=== PATIENT | male | born 1960 | race Caucasian/White ===

== ENCOUNTER 2022-02-03 08:27 | Outpatient (CLI) | payer OTHER, SELFPAY ==
[2022-02-03 13:49] LABS: Albumin* 4.2 g/dL (3.3-5.0); Chloride* 104 mmol/L (96-114); Sodium* 138 mmol/L (135-149)
[2022-02-03 13:50] LABS: Potassium* 4.6 mmol/L (3.6-5.1)
[2022-02-03 13:51] LABS: Cholesterol* 195 mg/dL (90-199)
[2022-02-03 13:52] LABS: Alanine Aminotransferase* 23 U/L (4-50); Alkaline Phosphatase* 64 U/L (40-150); Aspartate Amino Transferase* 29 U/L (12-35); Bilirubin Total* 0.7 mg/dL (0.1-1.5); Blood Urea Nitrogen* 17 mg/dL (7-30); Carbon Dioxide* 29 mmol/L (20-32); Estimated Glomerular Filt Rate 86 ml/min; Glucose* 92 mg/dL (60-115); Total Protein* 7.1 g/dL (6.0-8.3); Triglycerides* 70 mg/dL (40-149)
[2022-02-03 13:53] LABS: Calcium* 9.3 mg/dL (8.4-10.6); HDL Cholesterol* 56 mg/dL (>=40); LDL Cholesterol Calculated 125 mg/dL (<100)
[2022-02-03 14:23] LABS: PSA Screen* 0.59 ng/mL (0.10-4.00)
== END 2022-02-03 08:28 | disposition home or self-care (01) ==
PROVIDERS: PCP Internal Medicine; Visit Provider Internal Medicine
DX: Z12.5 Encounter for screening for malignant neoplasm of prostate (principal); Z13.6 Encounter for screening for cardiovascular disorders
CPT/HCPCS: 80053; 80061; 84153

== ENCOUNTER 2022-03-13 15:19 | Outpatient (CLI) | payer OTHER, SELFPAY ==
--- NOTE | 2022-03-13 15:30 | MR_ITS ---
[address] [address] Phone:?[phone] Fax:?[phone] Referring Physician Information: Luis Georges M.D. [id number] [address] Phone:?[phone] Fax:?[phone] Patient:?Marv Menon D.O.B:?1960 Sex:?Male Phone:?[phone] [facility] MRN:?[id number] Exam Date:?03/13/2022 ? EXAM: MRI OF THE LEFT SHOULDER CLINICAL INFORMATION: The patient is a 61-year-old with left shoulder pain. Evaluate for rotator cuff injury. PRIOR SURGERY: None reported. COMPARISON STUDIES: There are no prior studies available for comparison. TECHNICAL INFORMATION: Using a 1.5T MR scanner and a localizing shoulder surface coil: 3.0 mm?coronal obliques: PD, T2, STIR 3.0 mm?sagittal obliques: PD, T2 3.0 mm?axials: PD, T2 FINDINGS: Articular/Extraarticular collections: Effusion: Mild to moderate. Subacromial/subdeltoid: Mild fluid is seen within the subacromial/subdeltoid bursa, in keeping with mild bursitis. Subcoracoid: No evidence for bursitis. Osseous structures: Proximal humerus: Cortical irregularity and subcortical cystic changes can be seen involving the greater and lesser tuberosity regions, in keeping with the rotator cuff pathology discussed below. There is no evidence for greater or lesser tuberosity fracture. No Hill-Sachs or reverse Hill-Sachs lesion is identified. Glenoid: Cortical irregularity and subcortical cystic changes can be seen along the posterior articular surfaces of the glenoid with mild subcortical edema. The findings are noted on coronal series 4 image 19 and are in keeping with mild osteoarthritic change. No evidence for acute bony injury to the glenoid can be seen. There is no evidence for fracture. Acromioclavicular joint: Mild to moderate changes of acromioclavicular joint arthrosis are present. Coracoacromial arch: Acromion morphology: Type II. No evidence for os acromiale. Acromiohumeral space: Mildly narrowed. Coracohumeral space: Within normal limits. Rotator cuff and deltoid: Supraspinatus: Moderate changes of supraspinatus tendinosis can be seen with full-thickness tearing of the anterior and distal tendon fibers seen on coronal series 4 image 12 and on sagittal series 8 image 8. The area of full-thickness tearing measures 15 mm in mediolateral dimension and 15 mm in anteroposterior dimension. Additional partial-thickness intrasubstance and deep surface tearing of the remaining tendon fibers can be seen on coronal series 4 image 14, measuring approximately 28 mm in greatest dimension. No atrophic changes of the supraspinatus muscle belly are present. Infraspinatus: Moderate infraspinatus tendinosis can be seen. There is no evidence for full or partial-thickness tearing. No atrophic changes of the infraspinatus muscle belly are identified. Teres minor: No evidence for tendinosis, tearing, or associated muscle belly atrophy. Subscapularis: Moderate subscapularis tendinosis can be seen. There is no evidence for full or partial-thickness tearing. No atrophic changes of the subscapularis muscle belly are noted. Deltoid: No evidence for strain or tearing. Biceps tendon: The intra-articular and biceps sulcus portions of the biceps tendon are normal. There is no evidence for rupture, dislocation, or subluxation. Glenohumeral joint and labrum: Articular Cartilage: Chondromalacia and chondral thinning can be seen along the central and posterior articular surfaces of the glenohumeral articulation with underlying bony changes within the glenoid. The findings are in keeping with mild osteoarthritic change. Labrum: Degeneration, blunting, and irregularity of the glenoid labrum can be seen without definite areas of more well-defined tearing. No paralabral ganglion cyst formation is present. Capsular Soft Tissues: No definite capsular abnormalities of the glenohumeral joint are seen. No evidence for capsular tearing is present and there are no MR signs of adhesive capsulitis. CONCLUSION: 1. Moderate supraspinatus tendinosis with left partial-thickness tearing as described above. Additional moderate infraspinatus and subscapularis tendinosis can be seen. 2. Mild to moderate acromioclavicular joint arthrosis with mild narrowing of the acromiohumeral space. 3. The long head of the biceps tendon appears intact. 4. Mild osteoarthritic changes of the glenohumeral articulation with degeneration, blunting, and irregularity of the glenoid labrum. 5. Mild to moderate glenohumeral joint effusion and mild subacromial/subdeltoid bursitis. [facility] Electronically signed on 03/14/2022 7:36:00 AM by Werner Yanez M.D.
== END 2022-03-13 15:20 | disposition home or self-care (01) ==
LOC: MRI 15:20
PROVIDERS: PCP Internal Medicine; Visit Provider Orthopaedic Surgery Sports Medicine
DX: M25.512 Pain in left shoulder (principal); M75.102 Unspecified rotator cuff tear or rupture of left shoulder, not specified as traumatic; M19.012 Primary osteoarthritis, left shoulder; M25.412 Effusion, left shoulder
CPT/HCPCS: 73221

== ENCOUNTER 2022-05-01 06:16 | Day surgery (SDC) | payer OTHER, SELFPAY ==
[2022-05-01] VITALS (13 sets, daily range): BP systolic 86–113; BP diastolic 58–78; PULSE 58–93; RESP 16–18; TEMP 36.1–36.7; O2SAT 93–95; BMI 23.1
[2022-05-01] MEDS: LACTATED RINGERS 1000 ML 1,000 ML 100 ML IV ×2 (06:00→08:56)
--- NOTE | 2022-05-01 06:23 | SUR.PREOP ---
covid test negative per pt and picture on phone
[2022-05-01] MEDS: MIDAZOLAM HCL 1 MG/ML inj IVP (07:25)
[2022-05-01] MEDS: fentaNYL 100 MCG/2 ML inj IVP (07:25)
[2022-05-01] MEDS: SODIUM CHLORIDE 0.9 % (FLUSH) 10 ML SYRINGE IVF (07:34)
--- NOTE | 2022-05-01 07:34 | SUR.PREOP ---
TIME?OUT:?07 PT/RN/MDA?VERIFICATION?OF?SURGICAL?SITE,?PROCEDURE,?AND?CONSENT OBTAINED?PRIOR?TO?INVASIVE?PROCEDURE.LEFT SHOULDER
[2022-05-01] MEDS: EPINEPHrine 1 MG in SODIUM CHLORIDE IRRIG SOLUTION 3,000 ML 9003 MG IRRIGATION ×4 (07:40)
[2022-05-01] MEDS: CEFAZOLIN 2 GM in 0.9 % SODIUM CHLORIDE Mini-bag 100 ML IVPB (07:50)
--- NOTE | 2022-05-01 09:09 | P.NB_ITS ---
Nerve Block Nerve Block Time Seen by Provider: 07:24 Date Seen: 05/01/22 Type of block requested by surgeon for post-operative analgesia: interscalene Side: left Time out performed: Yes Verification of patient name: Yes Verification of date of : Yes Site marking: site marked Name of person performing procedure: Chago Assistants, if any: Kervin Continuous monitoring Was continuous monitoring of O2 sat, B/P, pododermatologist, recorded every 15 minutes?: Yes Procedure Checklist: sterile prep, needles and gloves Ultrasound guided. Images saved: Yes Medications given in 5ml increments after negative aspiration: Ropivicaine %: 0.5 mL: 20 Needle gauge: 22 Decadron (mg): 10 Precedex (mcg): 25 Patient tolerated procedure well: Yes Block Charges Block Charge (with Pro Fee): Brachial Plexus Use of Ultrasound Machine for Block: Yes- US Guidance/pain block
--- NOTE | 2022-05-01 09:35 | PM.ORPRC ---
Procedure Note Date of procedure: 05/01/22 Procedure: PREOPERATIVE DIAGNOSES: 1. Left shoulder rotator cuff tear. 2. Left shoulder subacromial impingement syndrome. 3. Left shoulder AC degenerative joint disease POSTOPERATIVE DIAGNOSES: 1. Left shoulder rotator cuff tear - full-thickness supraspinatus and high-grade partial-thickness upper border subscapularis 2. Left shoulder long head biceps low-grade partial-thickness tearing 3. 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 Left shoulder mild degenerative fraying/tearing anterior labrum 5. Left shoulder subacromial impingement syndrome. NAME OF OPERATION: 1. Left shoulder arthroscopic rotator cuff repair (full-thickness supra; high-grade partial-thickness upper border subscap) 2. Left shoulder arthroscopic extensive glenohumeral debridement 3. Left shoulder arthroscopic bursectomy, subacromial decompression/partial acromioplasty. SURGEON: Luis Georges MD MANAGER LEADERSHIP DEVELOPMENT: Lloyd Brink PA-C. Of note, a skilled community assistant was critical for this case to aide in patient positioning, suture manipulation, arm positioning, instrument positioning, and closure. ANESTHESIA: General plus preoperative supraclavicular block. EBL: Less than 25 mL IMPLANTS: Arthrex 2.6 mm all suture FiberTak RC (x2); 4.75 mm BioComposite SwiveLock suture anchor (x2); 5.5 mm BioComposite SwiveLock suture anchor (x1) COMPLICATIONS: None evident INDICATIONS: The patient is a pleasant, 61-year-old male who has experienced left shoulder pain that has been increasing in recent time. Physical exam and imaging were consistent with a rotator cuff tear. Given their findings, as well as the weakness and pain, and inadequate response to nonoperative management, recommendation was made for surgery. FINDINGS: Exam under anesthesia revealed stable shoulder with excellent range of motion. The diagnostic arthroscopy revealed grade 4 chondromalacia defect over the anterior superior humeral head in line with the biceps groove that measured 8 mm in diameter. Grade 2 chondromalacia surrounding this region otherwise. The Subscapularis tendon was torn from its upper border with mild to moderate retraction. The long head of the biceps tendon was intact overall with some partial-thickness fraying/tearing in the bicipital groove upon retracting the tendon into the joint. The superior rotator cuff tendon was found to be torn full-thickness through the anterior 2/3 of the supraspinatus. The labrum was degeneratively frayed in the anterior aspect. No loose bodies were identified within the pouch or subscapularis recess. PROCEDURE: Following a thorough discussion of risks, benefits, and alternatives, consent was obtained and the left shoulder was marked. The patient was brought to the operating room and placed supine on the operating table. Induction of anesthesia was completed after preoperative supraclavicular block was administered in preop holding. Appropriate time out was performed identifying proper patient, site, and procedure. 2 g IV Ancef was administered within 1 hour of incision preoperatively. The left upper extremity was prepped and draped in the appropriate sterile fashion using ChloraPrep prep. This was after the patient was positioned in the beach chair with their head in neutral alignment and all bony prominences well padded. The shoulder was insufflated with 20mL of normal saline via an 18g spinal needle from a posterior approach. An 11 blade skin incision allowed a blunt trochar to be inserted and diagnostic arthroscopy to be performed with the findings as noted above. An anterior portal was established with an outside in technique. This allowed the probe to be inserted and confirm the diagnostic arthroscopic findings. The shaver was then inserted and allowed debridement of the anterior labrum. Additionally, the shaver was utilized for debridement of the partial-thickness low-grade biceps tearing upon retracting this into the joint and for the humeral head chondral tissue debridement surrounding the grade 4 chondromalacia lesion. Following this, the upper border subscapularis was repaired after debriding the lesser tuberosity with the shaver and Mccoy cautery. Subscapularis was captured in horizontal mattress fashion with a fiber tape suture. The tails were brought to a single anchor in the lesser tuberosity with excellent reapproximation of the subscap tendon and good excursion/tension. Thereafter, the subacromial space was entered. Here, a complete bursectomy and partial acromioplasty/subacromial decompression was performed with a combination of radiofrequency ablator, the shaver, and a 5.5 mm bur. No significant spurring was appreciated on the caudal surface of the AC joint. Thus, the AC joint was left intact. Further inspection of the supraspinatus and infraspinatus rotator cuff was performed. This identified the tear as noted above. The margins of the tear were debrided, and the greater tuberosity was debrided with a combination of the apollo cautery, shaver, and bur on reverse setting. After gentle decortication, a speed bridge configuration with a medial isidro was engaged. 2 medial anchors were placed and the sutures were passed with a fiber link. The eyelet suture tails were then retrieved and tied and cinched down for the medial isidro purpose. A tail from each of the medial row anchor FiberTapes were then brought to a lateral row anchor along with 1 of the tails from the medial isidro. Excellent reapproximation of the tissue to the greater tuberosity was achieved with broad footprint compression. Prior to anchor driver license technician removal, the eyelet sutures were tugged on for each anchor and found that the anchor had excellent stability within the bone. The shoulder was placed through range of motion and found to be stable. The rotator cuff was re-probed and found to be stable. Instruments were removed. Excess fluid was drained, closure performed with 4-0 Monocryl and Steri-Strips. Dressings were applied. Sling was applied. The patient was awoken from anesthesia and transferred to the PACU in stable condition. A skilled community assistant was critical for this case to aid in patient positioning, limb positioning, skill to manipulate arthroscopic instruments and camera, suture management, patient safety, and closure. PLAN: 1. Elbow, forearm, wrist and digit range of motion of operative extremity as tolerated. 2. Encouraged ice. 3. Percocet for pain as needed. 4. Sling at all times except for ROM and showering. 5. Follow up with PA visit in 1-2 weeks for wound check. Initiate physical therapy following that visit for passive range of motion. Initiate active assisted range of motion at 3-4 weeks depending on tear size. May do pendulums now.
--- NOTE | 2022-05-01 09:49 | W.ANESCHARGE ---
Anesthesia Charges Start Date/Time Anesthesia Start Date: 05/01/22 Anesthesia Start Time: 07:37 Stop Date/Time Anesthesia Stop Date: 05/01/22 Anesthesia Stop Time: 09:51 Summary Emergency: No
--- NOTE | 2022-05-01 10:53 | W.ANESCHARGE ---
Anesthesia Charges Start Date/Time Anesthesia Start Date: 05/01/22 Anesthesia Start Time: 07:37 Stop Date/Time Anesthesia Stop Date: 05/01/22 Anesthesia Stop Time: 09:51 Summary Emergency: No
== END 2022-05-01 11:49 | disposition home or self-care (01) ==
PROVIDERS: PCP Internal Medicine; Visit Provider Orthopaedic Surgery Sports Medicine
PROC: (CPT 29805; principal; 2022-05-01 07:30)
DX: M75.122 Complete rotator cuff tear or rupture of left shoulder, not specified as traumatic (principal); M75.42 Impingement syndrome of left shoulder; M19.012 Primary osteoarthritis, left shoulder; M94.212 Chondromalacia, left shoulder; S46.112A Strain of muscle, fascia and tendon of long head of biceps, left arm, initial encounter; S43.432A Superior glenoid labrum lesion of left shoulder, initial encounter
CPT/HCPCS: 29827; 29826; 29823; 01630; 64415; 76942; C1713; J0171; J0330; J0690; J1100; J2250; J2370; J2405; J2704; J2795; J3010; J7120; L3670

== ENCOUNTER 2022-10-11 10:44 | Outpatient (CLI) | payer OTHER, SELFPAY ==
--- NOTE | 2022-10-11 11:00 | CRLHL7_ITS ---
For Patients: As a result of the Century Cures Act, medical imaging exams and procedure reports are released immediately into your electronic medical record. You may view this report before your referring provider. If you have questions, please contact your health care provider. INDICATION: TESTICULAR PAIN COMPARISON: 04/26/2017 TECHNIQUE: Vazquez scale imaging was performed of the scrotum. In addition color Doppler and spectral Doppler analysis was performed of the testes. FINDINGS: The testes demonstrate normal arterial and venous blood flow on color Doppler and spectral Doppler analysis. The testes have no evidence of a suspicious mass or area of inflammation. Mild incidental microlithiasis is again noted. The right testis measures 5.3 x 2.2 x 2.9 cm in size and the left testis measures 5.1 x 1.9 x 3.4 cm. Normal right epididymis. Left epididymal head cyst is present measuring 2.0 x 1.5 x 1.6 cm. A curvilinear septation is noted. This may represent 2 smaller cysts immediately adjacent to each other. There is no evidence of a hydrocele or varicocele. IMPRESSION: Left epididymal head cyst or cysts measuring in total up to 2 cm, similar to the prior exam. Mild bilateral testicular microlithiasis without intratesticular mass or acute inflammation. No torsion. Dictated by Eddie Tello MD @ 10/12/2022 8:51:01 AM (Electronically Signed)
== END 2022-10-11 10:45 | disposition home or self-care (01) ==
LOC: US 10:45
PROVIDERS: PCP Internal Medicine; Visit Provider Urology
DX: N50.819 Testicular pain, unspecified (principal); N50.3 Cyst of epididymis
CPT/HCPCS: 76870; 93976

== ENCOUNTER 2023-02-08 14:13 | Outpatient (CLI) | payer OTHER, SELFPAY ==
--- NOTE | 2023-02-08 14:30 | MR_ITS ---
[facility] [address] [facility] [address] Phone:?[phone] Fax:?[phone] Referring Physician Information: Abraham Jansen M.D. [address] [facility] [address] Phone:?[phone] Fax:?[phone] Patient:Annette Menon D.O.B:?1960 Sex:?Male Phone:?[phone] [facility] MRN:?[id number] Exam Date:?02/08/2023 EXAM: MRI of the RIGHT SHOULDER, without contrast CLINICAL: Right shoulder and upper arm injury. Evaluate for rotator cuff tear. COMPARISONS: None available. TECHNICAL: Multiplanar multisequence MRI of the right shoulder was obtained. SEDATION: None. CONTRAST: None. FINDINGS: Rotator cuff: Supraspinatus/Infraspinatus: There is high-grade partial interstitial insertional tearing of the junction of the posterior distal supraspinatus and anterior distal infraspinatus tendons on coronal series 4 images 15-16 involving approximately 70% of the tendon thickness and superimposed upon mild tendinosis. No significant fatty atrophy of the muscle bellies. Teres minor: No tendinosis, tear or atrophy. Subscapularis: Postop changes of prior tendon repair surgery, with only minimal partial interstitial tearing of the distal tendon. No evidence of high-grade partial or full-thickness tendon tear. No significant fatty atrophy of the muscle belly. Bursae: Subacromial-subdeltoid: Mild bursal fluid. Subcoracoid: No significant bursal fluid. Coracoacromial arch: Acromion morphology: Type II. No os acromiale. Acromiohumeral space: Mildly narrowed. Coracohumeral space: Within normal limits. Biceps tendon, long head: Intraarticular and extraarticular segments intact without rupture, tendinopathy or displacement. Glenohumeral joint: Physiologic volume of joint fluid. Articular cartilage: No chondral defects identified. Capsule: No convincing evidence of capsular thickening or injury. Labrum: There is focal tearing of the posterior labrum on axial series 3.2 images 47. There is attenuation/tearing of the posterior superior labrum on coronal series 4 images 16-17. No additional discrete labral tear identified on this nonarthrogram exam. No perilabral cyst identified. Bones: Reactive marrow edema and small cystic change is seen to involve the greater tuberosity of the proximal humerus. Postoperative changes of prior distal subscapularis tendon repair surgery noted with associated surgical anchor in place within the proximal humerus. No evidence of fracture. Acromioclavicular joint: Mild changes of arthrosis. No AC joint injury/widening. IMPRESSION: 1. High-grade partial interstitial insertional tearing of the junction of the posterior distal supraspinatus and anterior distal infraspinatus tendons superimposed upon mild tendinosis. 2. Postoperative changes of prior subscapularis tendon repair surgery with only minimal partial interstitial tearing of the distal tendon. 3. Focal tearing of the posterior labrum with attenuation/tearing of the posterior superior labrum. 4. Mildly narrowed acromiohumeral space with mild subacromial-subdeltoid bursitis. 5. Mild AC joint arthrosis. [facility] Electronically signed on 02/08/2023 4:53:00 PM by Jeet Paige D.O.
== END 2023-02-08 14:14 | disposition home or self-care (01) ==
PROVIDERS: PCP Internal Medicine; Visit Provider Internal Medicine
DX: M25.511 Pain in right shoulder (principal); M75.101 Unspecified rotator cuff tear or rupture of right shoulder, not specified as traumatic; M75.51 Bursitis of right shoulder; M19.011 Primary osteoarthritis, right shoulder
CPT/HCPCS: 73221

== ENCOUNTER 2023-04-02 07:28 | Day surgery (SDC) | payer OTHER, SELFPAY ==
[2023-04-02] VITALS (13 sets, daily range): BP systolic 92–130; BP diastolic 40–90; PULSE 59–78; RESP 11–16; TEMP 36.3–36.6; O2SAT 91–97; BMI 23.3
--- NOTE | 2023-04-02 07:38 | W.PM.H&PU ---
History & Physical Update History & Physical Update H&P Reviewed and patient assessed: No changes noted
[2023-04-02] MEDS: SODIUM CHLORIDE 0.9 % (FLUSH) 10 ML SYRINGE IVF (08:07)
[2023-04-02] MEDS: LACTATED RINGERS 1000 ML 1,000 ML 100 ML IV (08:08)
[2023-04-02] MEDS: fentaNYL 100 MCG/2 ML inj IVP (09:00)
[2023-04-02] MEDS: MIDAZOLAM HCL 1 MG/ML inj IVP (09:00)
--- NOTE | 2023-04-02 09:09 | SUR.PREOP ---
TIME?OUT:?0900 PT/RN/MDA?VERIFICATION?OF?SURGICAL?SITE,?PROCEDURE,?AND?CONSENT OBTAINED?PRIOR?TO?INVASIVE?PROCEDURE.
[2023-04-02] MEDS: CEFAZOLIN 2 GM in 0.9 % SODIUM CHLORIDE Mini-bag 100 ML IVPB (09:20)
[2023-04-02] MEDS: EPINEPHrine 1 MG in SODIUM CHLORIDE IRRIG SOLUTION 3,000 ML 9003 MG IRRIGATION ×5 (09:40→10:40)
--- NOTE | 2023-04-02 10:50 | P.ORPRC_ITS ---
Procedure Note Date of procedure: 04/02/23 Procedure: PREOPERATIVE DIAGNOSES: 1. Right shoulder rotator cuff retear (original repair 2013, [facility]) 2. Right shoulder anterior and superior degenerative labral fraying and tearing POSTOPERATIVE DIAGNOSES: 1. Right shoulder rotator cuff retear (original repair 2013, [facility]) 2. Right shoulder anterior and superior degenerative labral fraying and tearing 3. Right shoulder retained foreign body-previous suture material from surgical repair 2012 NAME OF OPERATION: 1. Right shoulder arthroscopic rotator cuff re-repair (subscapularis and supra/infra junction) 2. Right shoulder arthroscopic limited glenohumeral debridement 3. Right shoulder arthroscopic removal foreign body (suture material from previous rotator cuff repair) SURGEON: Luis Georges MD MARBLE WORKER: Lloyd Brink PA-C. Of note, a skilled project construction assistant manager was critical for this case to aide in patient positioning, suture manipulation, arm positioning, instrument positioning, and closure. ANESTHESIA: General plus preoperative supraclavicular block. EBL: 25 mL IMPLANTS: Arthrex 4.75 mm BioComposite SwiveLock suture anchor (x1); 5.5 mm BioComposite SwiveLock suture anchor (x1) COMPLICATIONS: None evident INDICATIONS: The patient is a pleasant, 62-year-old male who underwent a right shoulder rotator cuff repair 2013, [facility]. In recent time (months and may be even more than a year) the patient has experienced increasing right shoulder pain, weakness, and dysfunction. He has tried failed extensive nonoperative management. Physical exam and imaging were consistent with a rotator cuff tear. Given their findings, as well as the weakness and pain, and inadequate response to nonoperative management, recommendation was made for surgery. FINDINGS: Exam under anesthesia revealed stable shoulder with excellent range of motion. The diagnostic arthroscopy revealed grade 2 chondromalacia humeral head superiorly. Otherwise relatively healthy articular cartilage. The Subscapularis tendon was torn from its lesser tuberosity with mild-moderate retraction of the upper border with significant fiber fraying and tearing. The anchor could be visualized in the lesser tuberosity region and suture material was retained within the upper border subscapularis. It had been torn and from the anchor. The long head of the biceps tendon was intact with minimal hemorrhagic tissue/streaking. The superior rotator cuff tendon was found to be torn and high-grade partial-thickness manner likely mid substance. From the articular side or bursal sided appear to be intact. However, probing showed this to be very frail. The labrum was degeneratively frayed in the anterior and superior aspects. No loose bodies were identified within the pouch or subscapularis recess. PROCEDURE: Following a thorough discussion of risks, benefits, and alternatives, consent was obtained and the right shoulder was marked. The patient was brought to the operating room and placed supine on the operating table. Induction of anesthesia was completed after preoperative supraclavicular block was administered in preop holding. Appropriate time out was performed identifying proper patient, site, and procedure. 2 g IV Ancef was administered within 1 hour of incision preoperatively. The right upper extremity was prepped and draped in the appropriate sterile fashion using ChloraPrep prep. This was after the patient was positioned in the beach chair with their head in neutral alignment and all bony prominences well padded. The shoulder was insufflated with 20mL of normal saline via an 18g spinal needle from a posterior approach. An 11 blade skin incision allowed a blunt trochar to be inserted and diagnostic arthroscopy to be performed with the findings as noted above. An anterior portal was established with an outside in technique. This allowed the probe to be inserted and confirm the diagnostic arthroscopic findings. The shaver was then inserted and allowed debridement of the anterior and superior l abrum. Following this, the upper border subscapularis was repaired after debriding the lesser tuberosity with the shaver and Clymer cautery. Subscapularis was captured in horizontal mattress fashion with a fiber tape suture. The tails were brought to a single anchor in the lesser tuberosity with excellent reapproximation of the subscap tendon and good excursion/tension. In addition, the retained suture within the upper border subscapularis was cut with arthroscopic scissors and retrieved with a Frakes to remove this foreign body. Thereafter, the subacromial space was entered. Further inspection of the supraspinatus and infraspinatus rotator cuff was performed. This identified the tear as noted above. The margins of the tear were debrided, and the greater tuberosity was debrided with a combination of the apollo cautery, shaver, and bur on reverse setting. After gentle decortication, single FiberTape suture was passed in a horizontal mattress fashion with the scorpion needle. It was brought to a single anchor further laterally with excellent reapproximation and securing of the rotator cuff. Prior to anchor driver examiner removal, the eyelet sutures were tugged on for each anchor and found that the anchor had excellent stability within the bone. The shoulder was placed through range of motion and found to be stable. The rotator cuff was re-probed and found to be stable. Instruments were removed. Excess fluid was drained, closure performed with 4-0 Monocryl and Steri-Strips. Dressings were applied. Sling was applied. The patient was awoken from anesthesia and transferred to the PACU in stable condition. A skilled project construction assistant manager was critical for this case to aid in patient positioning, limb positioning, skill to manipulate arthroscopic instruments and camera, sutur e management, patient safety, and closure. PLAN: 1. Elbow, forearm, wrist and digit range of motion as tolerated. 2. Encouraged ice. 3. Oxycodone for pain as needed. 4. Sling at all times except for ROM and showering. 5. Follow up with PA visit in 1-2 weeks for wound check. Initiate physical therapy following that visit for passive range of motion. Initiate active assisted range of motion at 4 weeks. May do pendulums now.
--- NOTE | 2023-04-02 11:04 | W.ANESCHARGE ---
Anesthesia Charges Start Date/Time Anesthesia Start Date: 04/02/23 Anesthesia Start Time: 09:07 Stop Date/Time Anesthesia Stop Date: 04/02/23 Anesthesia Stop Time: 11:00
--- NOTE | 2023-04-02 11:13 | W.PM.NB ---
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 Images saved: Yes Medications given in 5ml increments after negative aspiration: Ropivicaine %: 0.5 mL: 20 Needle gauge: 22 Decadron (mg): 10 Precedex (mcg): 25 Patient tolerated procedure well: Yes Block Charges Block Charge (with Pro Fee): Brachial Plexus Use of Ultrasound Machine for Block: Yes- US Guidance/pain block
--- NOTE | 2023-04-02 11:14 | W.ANESCHARGE ---
Anesthesia Charges Start Date/Time Anesthesia Start Date: 04/02/23 Anesthesia Start Time: 09:07 Stop Date/Time Anesthesia Stop Date: 04/02/23 Anesthesia Stop Time: 11:00
== END 2023-04-02 12:35 | disposition home or self-care (01) ==
PROVIDERS: PCP Internal Medicine; Visit Provider Orthopaedic Surgery Sports Medicine
PROC: (CPT 29805; principal; 2023-04-02 09:30)
DX: M75.101 Unspecified rotator cuff tear or rupture of right shoulder, not specified as traumatic (principal); S43.431A Superior glenoid labrum lesion of right shoulder, initial encounter; G89.18 Other acute postprocedural pain
CPT/HCPCS: 29827; 29822; 01630; 64415; 76942; C1713; J0171; J0330; J0690; J1100; J2250; J2371; J2405; J2795; J3010; J7120; L3670

== ENCOUNTER 2024-01-04 07:53 | Outpatient (CLI) | payer OTHER, SELFPAY ==
--- OUTSIDE RECORDS SUMMARY | 2024-01-06 08:14 | XMS_ITS | Data Portability ---
Author Organization [place] [facility] Address [address] [place] [address] Assessment No assessment recorded. Plan of Treatment Reminders Order Date Submit Date Provider Last Modified By Organization Details Last Modified Time Details Appointments None recorded. Lab None recorded. Referral None recorded. Procedures None recorded. Surgeries None recorded. Imaging US, duplex, scrotum, complete 2022 023 [facility], [address] [place], [address], 09:06:11 Medication Orders meloxicam 15 mg tablet 2022 023 [email or web address] [id number], [address] [place], [place], [id number], 17:47:01 Patient TargetsNo targets recorded. Patient InstructionsNo instructions recorded. Reason for Referral None Reported. Results Created Date Observation Date Name Description Value Unit Range Abnormal Flag LastModifiedBy Organization Detail LastModifiedTime 10/14/19 23 10/11/2022 US, duple x, scrot um, compl ete No observ ation record ed. [facility] [address] [place], [address], 10/13/2022 18:44:31 Result Notes None recorded. Procedures Surgical History None recorded. Imaging Results Imaging Date Name Status LastModified by Organiz ation Details LastModified Time 10/11/2022 US, duplex, scrotum, complete completed [facility] [address] [place], [address], 10/13/2022 18:44:31 Procedure Notes None recorded. Medical Equipment None Reported. Allergies No known drug allergies Medications Name Sig Start Date Stop Date Status Note LastModified by Organization Details LastModified Time meloxicam 15 mg tablet TAKE 1 TABLET BY MOUTH EVERY DAY active Not Available Not Available No t Available oxycodone-gerri taminophen 5 mg-325 mg tablet TAKE 1 TABLET BY MOUTH EVERY 4 TO 8 HOURS NEEDED FOR PAIN 10/10 completed Not Available Not Available Not Available naproxen 500 mg tablet TAKE ONE TABLET BY MOUTH TWICE DAILY 10/10 completed Not Available Not Available Not Available amoxicillin 875 mg-potassium clavulanate 125 mg tablet TAKE 1 TABLET BY MOUTH TWICE DAILY FOR 10 DAYS 10/10 completed Not Available Not Available Not Available Vitals Date Recorded Body height Body mass index (BMI) Body weight Provider Name and Address Organization Details Last Updated DateTime 10/10/2022 193.04 cm 23.1 kg/m2 03517.55 g Deon Craft [facility] 10/10/2022 15:04:00 Social History Question Answer Notes LastModified by Organizat ion Details LastModified Time Tobacco Smoking Status Never Smoker Deon Craft [facility] 10/10/2022 15:07:50 What Is Your Level Of Alcohol Consumption? Moderate Information not available 10/10/2022 Are You Currently Employed? No Information not available 10/10/2022 Recreational Drug Use No Information not available 10/10/2022 What Was The Date Of Your Most Recent Tobacco Screening? 10/10/2022 Information not available 10/10/2022 What Is Your Relationship Status? Information not available 10/10/2022 Has Tobacco Cessation Counseling Been Provided? No Information not available 10/10/2022 Do You Or Have You Ever Used Any Other Forms Of Tobacco Or Nicotine? No Information not available 10/10/2022 Sex: Unknown Functional Status None recorded. Mental Status None recorded. Family History Relationship Description Onset Age of this Age Resolved Age Notes Father No current problems or disability Father Family history of ca ncer of colon Father Family history of malignant neoplasm of kidney Mother No current problems or disability Mother Family history of ca rdiac disorder Medical History No medical history recorded. Immunizations Vaccine Type Date Status Provider Name and Address Organization Details Recorded Time Influenza, split virus, quadrivalent, preservative 04/02/2020 completed Ledy Cunningham null, [facility] 04/30/2023 14:35:21 Influenza, split virus, quadrivalent, preservative 04/25/2021 completed Ledy Cunningham null, [facility] 04/30/2023 14:35:21 IPV 07/21/1999 completed Ledy Cunningham null, [facility] 04/30/2023 14:35:21 Influenza, recombinant, quadrivalent, PF 04/27/2022 completed Ledy Cunningham null, [facility] 04/30/2023 14:35:21 zoster [facility] 03/13/2018 [facility] 14:35:21 zoster recombinant 05/13/2018 completed Ledy Cunningham null, [facility] 04/30/2023 14:35:21 zoster recombinant 05/22/2018 [facility] 04/30/2023 14:35:21 COVID-19 vaccine, vector-nr, rS-Ad26, PF, 0.5 mL 10/04/2020 [facility] 04/30/2023 14:35:21 COVID-19 vaccine, vector-nr, rS-Ad26, PF, 0.5 mL 05/03/2021 [facility] 04/30/2023 14:35:21 COVID-19, mRNA, LNP-S, PF, 30 mcg/0.3 mL dose, samm-sucrose 01/14/2022 [facility] 04/30/2023 14:35:21 influenza, unspecified formulation 04/13/2009 [facility] 04/30/2023 14:35:21 influenza, unspecified formulation 04/24/2003 [facility] 04/30/2023 14:35:21 influenza, unspecified formulation 05/31/2005 completed Ledy Cunningham null, [facility] 04/30/2023 14:35:21 Tdap 12/02/2007 completed Ledy Reardonre null, [facility] 04/30/2023 14:35:21 typhoid, unspecified formulation 07/02/1999 completed Ledy Cunningham null, [facility] 04/30/2023 14:35:21 typhoid, unspecified formulation 11/17/2005 [facility] 04/30[facility]23 14:35:21 Novel [id number], all formulations 07/24/2009 [facility] 04/30/2023 14:35:21 Influenza, split virus, trivalent, preservative 05/03/1999 [facility] 04/30/2023 14:35:21 Influenza, split virus, trivalent, preservative 05/16/1997 [facility] 04/30/2023 14:35:22 Influenza, split virus, trivalent, preservative 05/21/2001 [facility] 14:35:22 Influenza, split virus, trivalent, PF 04/22/2011 [facility] 04/30/2023 14:35:22 Influenza, split virus, trivalent, PF 05/24/2012 [facility] 04/30/2023 14:35:22 Td (adult), 5 Lf tetanus toxoid, preservative free, adsorbed 10/14/2018 [facility]/2023 14:35:22 Td (adult), 2 Lf tetanus toxoid, preservative free, adsorbed 02/25/1997 [facility] 04/30/2023 14:35:22 Hep A, pediatric, unspecified formulation 07/21/1999 completed Ledy ClaudiocindyYONIS wei [facility] 04/30/2023 14:35:22 Hep A, pediatric, unspecified formulation 08/03/2003 [facility] 04/[facility]/2023 14:35:22 Influenza, split virus, quadrivalent, PF 04/10/2019 [facility] 04/[facility]/2023 14:35:22 Influenza, split virus, quadrivalent, PF 04/22/2018 [facility] 04/30/2023 14:35:22 Influenza, split virus, quadrivalent, PF 04/26/2017 [facility] 04/30/2023 14:35:22 Influenza, split virus, quadrivalent, PF 05/06/2020 [facility] 04/[facility]/2023 14:35:22 Past Encounters Encounter ID Performer Location Encounter Start Date Encounter Closed Date Diagnosis/Indication Diagnosis SNOMED-CT Code [id number] Juliano Kowalski MD [facility] [address] [place] [address] 10/10/2022 14:52:23 10/12/2022 10:53:26 Pain in testicle 26025372 Spermatocele [id number] Health Concerns Section Related Observation LastModified by Organization Detai ls LastModified Time None Recorded Concern Status LastModified by Organization Details LastModified Time None Recorded Advance Directives Directive None Recorded Payers Encounter Date Sequence Insurance Name Policy Number Policy Mishra Covered Member ID Mishra Member ID Guarantor Name 10/10/2022 1 [facility] FAMILY (HMO) [id number] Marv Menon [id number] Marv Menon Notes Date Note Type Note Provider Name and Address Organization Details Recorded Time 10/10/2022 text/html HPI Notes: Mr. Marv Menon is a 61-year-old male who was referred to me by his primary care, Dr. Jansen, regarding recurrent epididymitis. Patient reports that he has had a few instances now sudden onset of pain particularly in the area of the left testicle. He denies any associated swelling, erythema, warmth or signs of infection. This does seem to correlate with him starting a pretty strenuous weight lifting program in an effort to repeat the world record for a 50 m butterfly swim for his age. Currently reports he has about 1/10th of a second for the record. Reports no history of hematuria, dysuria, or other urinary tract infections. Does report that he empties well. He does also note a correlation between pain and switching from briefs to boxers. He has since returned to [employer]. He was started on empiric antibiotics by his primary care provider. 12/21/21 Here for follow up left spermatocele and left chronic orchialgia. Reports significant improvement in symptoms, though still persist. 10/10/2022: Here for follow-up chronic left orchialgia. Patient states that he had had significant pain relief from his meloxicam. Over the course of the last month or so he has felt the pain recur however. It is not as intense and does not last as long but is still bothersome. Juliano Kowalski MD [address], [place], [address], [facility] 10/10/2022 17:49:26
--- OUTSIDE RECORDS SUMMARY | 2024-01-06 08:14 | XMS_ITS | Clinical Summary ---
Author Organization [facility] Address [place], [place] [address] Care Team Providers Care Pulper Tender Name Role Phone Abraham Jansen MD Primary Care Provider [phone] Allergies No known active allergies Medications Medication Sig Dispensed Refills Start Date End Date Status meloxicam 15 mg tabletIndications:Rupinder n in left testicle Take 1 Tablet (15 mg) by mouth once daily. 30 Tablet 1 12/21/2021 Active Family History Medical History Relation Name Comments Cancer-colon Father mets to liver d ied at 68 Heart Disease Mother valve secondar y rheumatic fever at 62 Relation Name Status Comments Father Mother Social History Tobacco Use Types Packs/Day Years Used Date Smoking Tobacco: Former Smokeless Tobacco: Never Tobacco Cessation:Counseling Given: Yes Comments:almost no smoking occasionally cigar in 20s Alcohol Use Standard Drinks/Week Comments Yes 0 (1 standard drink = 0.6 oz pur e alcohol) 1-2 beers a week Sex and Gender Information Value Date Recorded Sex Assigned at Not on file Gender Identity Not on file Sexual Orientation Not on file Obstetrics History Last Filed Vital Signs Vital Sign Reading Time Taken Comments Blood Pressure 111/72 12/21/2021 10:14 AM CDT Pulse 68 12/21/2021 10:14 AM CDT Temperature - - Respiratory Rate 16 12/21/2021 10:1 4 AM CDT Oxygen Saturation 97% 12/21/2021 10: 14 AM CDT Inhaled Oxygen Concentration - - Weight 87.1 kg (192 lb) 12/21/2021 10:1 4 AM CDT PT weighed with shoes on. Height 193 cm (6' 3.98) 06/28/2015 7:5 1 AM [employer] Body Mass Index 23.38 06/28/2015 7:51 AM [employer] Plan of Treatment Health Maintenance Due Date Last Done Comments Tdap 1971 Depression screening for age 12+ 1972 HIV for age 15-65 1975 BMI (ht and wt on same day) for age 18+ 1978 Tetanus booster 1980 Colonoscopy through age 75 2005 Zoster (shingles) series for age 50+ (1 of 2) 2010 Lipids for age 45-75 06/28/2020 06/28/2015 COVID-19 vaccine series (3 2022- season) 2023 05/03/2021, 10/04/2020 Influenza for age 50-64 03/02/2024 Hepatitis C screening for ag e 18-79 Completed 06/28/2015 Pneumococcal series for age 6-64 Aged Out No longer eligible b ased on patient's age to complete this topic Procedures Procedure Name Priority Date/Time Associated Diagnosis Comments ANTI HCV Routine 06/28/2015 8:49 AM [employer] Need for hepatitis C screening test LIPID PANEL W REFLEX MEASURED LDL Routine 06/28/2015 8:49 AM [employer] Lipid screening from Last 3 Months or Most Recently Relevant to Health Maintenance Results * LIPID PANEL W REFLEX MEASURED LDL (06/28/2015 8:49 AM [employer]) CHOLESTEROL,TOTAL 156 100 - 199 mg/dL 06/28/2015 9:28 AM [employer] [facility] TRIGLYCERIDES 45 <150 mg/dL 06/28/2015 9:28 AM [employer] [facility] HDL CHOLESTEROL 48 >40 mg/dL 06/28/2015 9:28 AM [employer] [facility] NON-HDL CHOLESTEROL 108 <145 mg/dl 06/28/2015 9:28 AM [facility] CHOL/HDL RATIO 3.25 <4.50 06/28/2015 9:28 AM [facility] LDL CHOLESTEROL 99 <=130 mg/dL 06/28/2015 9:28 AM [facility] PATIENT STATUS FASTING 06/28/2015 9:28 AM [facility] Blood specimen (specimen) BLOOD SPECIMEN / Unknown Venipuncture / Unknown 06/28/2015 8:49 AM [employer] 06/28/2015 8:49 AM [employer] Harrison Gordillo MD CHEMISTRY [facility] [address] [place] [address], * ANTI HCV [28023.2] (06/28/2015 8:49 AM [employer]) HEPATITIS C ANTIBODY Non-Reacti ve Non-Reacti ve 06/28/2015 2:38 PM [employer] [facility] Blood specimen (specimen) BLOOD SPECIMEN / Unknown Venipuncture / Unknown 06/28/2015 8:49 AM [employer] 06/28/2015 8:49 AM [employer] Narrative [facility] - 06/28/2015 2:38 PM [employer] Antibodies to HCV not detected; does not exclude the possibility of exposure to HCV. Harrison Gordillo MD SEND OUTS [facility] [address] [place] [address], from Last 3 Months or Most Recently Relevant to Health Maintenance Care Teams Pulper Tender Relationship Specialty Start Date End Date Abraham Jansen MD [address] [place] [address] PCP - General Internal Medicine 07/06/21
== END 2024-01-04 07:54 | disposition home or self-care (01) ==
LOC: NFLDREF 01-06 08:13
PROVIDERS: PCP Internal Medicine; Referring Provider Internal Medicine; Visit Provider Internal Medicine
DX: E78.5 Hyperlipidemia, unspecified (principal); Z12.5 Encounter for screening for malignant neoplasm of prostate; Z13.228 Encounter for screening for other metabolic disorders
CPT/HCPCS: 80053; 80061; G0103

== ENCOUNTER 2024-06-02 10:00 | Outpatient (CLI) | payer OTHER, SELFPAY ==
--- OUTSIDE RECORDS SUMMARY | 2024-06-02 10:02 | XMS_ITS | Clinical Summary ---
Author Organization [employer] [facility] [employer] Address [place], [place] [address] Care Team Providers Care [employer] Name Role Phone Abraham Jansen MD Primary Care Provider Allergies No known active allergies Medications Medication [...] cm (6' 3.98) 06/28/2015 7:5 1 AM [employer] Body Mass Index 23.38 06/28/2015 7:51 AM [employer] Plan of Treatment Health Maintenance Due Date Last Done Comments Tdap 1971 Depression screening for age 12+ 1972 HIV for age 15-65 1975 BMI (ht and wt on same day) for age 18+ 1978 Tetanus booster 1980 Colonoscopy through age 75 2005 Zoster (shingles) series for age 50+ (1 of 2) 2010 Lipids for age 45-75 06/28/2020 06/28/2015 COVID-19 vaccine series (3 2023- season) 2024 05/03/2021, 10/04/2020 Influenza for age 50-64 03/02/2024 Hepatitis C screening for ag e 18-79 Completed 06/28/2015 Pneumococcal series for age 6-64 Aged Out No longer eligible b ased on patient's age to complete this topic Procedures Procedure Name Priority Date/Time Associated Diagnosis Comments ANTI HCV Routine 06/28/2015 8:49 AM [employer] Need for hepatitis C screening test LIPID PANEL W REFLEX MEASURED LDL Routine 06/28/2015 8:49 AM [employer] Lipid screening from Last 3 Months or Most Recently Relevant to Health Maintenance Results * LIPID PANEL W REFLEX MEASURED LDL (06/28/2015 8:49 AM [employer]) CHOLESTEROL,TOTAL 156 100 - 199 mg/dL 06/28/2015 9:28 AM [employer] [facility] TRIGLYCERIDES 45 <150 mg/dL 06/28/2015 9:28 AM [employer] [facility] HDL CHOLESTEROL 48 >40 mg/dL 06/28/2015 9:28 AM [employer] [facility] NON-HDL CHOLESTEROL 108 <145 mg/dl 06/28/2015 9:28 AM [employer] [facility] CHOL/HDL RATIO 3.25 <4.50 06/28/2015 9:[address] [facility] LDL CHOLESTEROL 99 <=130 mg/dL 06/28/2015 9:28 AM [employer] [facility] PATIENT STATUS FASTING 06/28/2015 9:[address] [facility] Blood specimen (specimen) BLOOD SPECIMEN / Unknown Venipuncture / Unknown 06/28/2015 8:49 AM [employer] 06/28/2015 8:49 AM [employer] Harrison Gordillo MD CHEMISTRY [facility] [address] [place] [address], * ANTI HCV [21701.2] (06/28/2015 8:49 AM [employer]) HEPATITIS C ANTIBODY Non-Reacti ve Non-Reacti ve 06/28/2015 2:38 PM [employer] [facility] Blood specimen (specimen) BLOOD SPECIMEN / Unknown Venipuncture / Unknown 06/28/2015 8:49 AM [employer] 06/28/2015 8:49 AM [employer] Narrative [facility] - 06/28/2015 2:38 PM [employer] Antibodies to HCV not detected; does not exclude the possibility of exposure to HCV. Harrison Gordillo MD SEND OUTS [facility] [address] [place] [address], [place] from Last 3 Months or Most Recently Relevant to Health Maintenance Care Teams [employer] Relationship Specialty Start Date End Date Abraham Jansen MD [address] [place] [address] PCP - General Internal Medicine 07/06/21
--- NOTE | 2024-06-02 10:15 | CRLHL7_ITS ---
For Patients: As a result of the Century Cures Act, medical imaging exams and procedure reports are released immediately into your electronic medical record. You may view this report before your referring provider. If you have questions, please contact your health care provider. INDICATION: Testicular pain COMPARISON: 10/11/2022 TECHNIQUE: Vazquez scale imaging was performed of the scrotum. In addition color Doppler and spectral Doppler analysis was performed of the testes. FINDINGS: The testes demonstrate normal arterial and venous blood flow on color Doppler and spectral Doppler analysis. Few scattered microcalcifications are present within the testicles bilaterally. The right testis measures 4.2 x 2.5 x 2.8 cm in size and the left testis measures 4.6 x 2.5 x 3.0 cm. Normal right epididymis. Left epididymal head cysts are present measuring 2.1 x 1.4 x 1.9 cm and 1.0 x 0.6 x 0.7 cm. There is no evidence of a hydrocele or varicocele. IMPRESSION: Left epididymal head cysts measure up to 2.1 cm, similar to the prior exam. Mild bilateral testicular microlithiasis unchanged. No torsion or evidence of acute inflammation. No testicular mass. Dictated by Eddie Tello MD @ 06/02/2024 2:43:29 PM (Electronically Signed)
== END 2024-06-02 10:01 | disposition home or self-care (01) ==
PROVIDERS: PCP Internal Medicine; Visit Provider Urology
DX: N50.819 Testicular pain, unspecified (principal); N50.3 Cyst of epididymis
CPT/HCPCS: 76870; 93976

== ENCOUNTER 2025-05-08 07:53 | Outpatient (CLI) | payer OTHER, SELFPAY | END 2025-05-08 07:54 | disposition home or self-care (01) | LOC: NFLDREF 05-11 08:29 | PROVIDERS: PCP Internal Medicine; Referring Provider Internal Medicine; Visit Provider Internal Medicine | DX: E78.5 Hyperlipidemia, unspecified (principal) | CPT/HCPCS: 80053; 80061; G0103 ==